=== PATIENT | male | born 1975 | race African-American/Black ===

== ENCOUNTER 2019-04-14 12:50 | Emergency (ER) | payer OTHER ==
[2019-04-14 12:55] VITALS: BP 130/75; PULSE 77; TEMP 98.2; BMI 28.8
--- NOTE | 2019-04-14 14:51 | PDOC ---
History of Present Illness - General Chief Complaint: Pain, Acute Stated Complaint: LEFT ANKLE PAIN Time Seen by Provider: 04/14/19 12:56 History Source: Patient (Patient walked in after injuring left ankle 3 weeks ago , on top of a similar previous injury) Past History - Past Medical History Allergies/Adverse Reactions: Allergies Allergy/AdvReac Type Severity Reaction Status Date / Time No Known Allergies Allergy Verified 04/14/19 12:51 Home Medications: Ambulatory Orders NK [No Known Home Medication] 04/14/19 CVA: No COPD: No Thyroid Disease: No Other medical history: DENIES - Psycho Social/Smoking Cessation Hx Smoking History: Current some day smoker Number of Cigarettes Smoked Daily: 1 Information on smoking cessation initiated: Yes Hx Alcohol Use: Yes (OCASIONAL) Drug/Substance Use Hx: No *Physical Exam - Vital Signs Last Vital Signs Temp Pulse Resp BP Pulse Ox 98.2 F 77 17 130/75 100 04/14/19 12:51 04/14/19 12:51 04/14/19 12:51 04/14/19 12:51 04/14/19 12:51 ED Treatment Course - RADIOLOGY Radiology Studies Ordered: Category Date Time Status ANKLE-LEFT [RAD] Stat Radiology 04/14/19 13:28 Completed Discharge - Discharge Information Problems reviewed: Yes Clinical Impression/Diagnosis: Achilles rupture, left Qualifiers: Encounter type: initial encounter Qualified Code(s): S86.012A - Strain of left Achilles tendon, initial encounter Condition: Stable Disposition: HOME - Admission No - Additional Discharge Information Health Concerns: Achile's tendon injury Prescription Drug Monitoring Program (I-STOP) results: I-STOP reviewed and no issues identified - Follow up/Referral Referrals: Willie Jacobs MD [Staff Physician] - - Patient Discharge Instructions Patient Printed Discharge Instructions: Achilles Tendon Rupture Additional Instructions: [facility], request [facility]opedic Evaluation for potential surgical repair - Post Discharge Activity
== END 2019-04-14 15:07 | disposition home or self-care (01) ==
LOC: FER 12:50
DX: S86.012A Strain of left Achilles tendon, initial encounter (principal); X58.XXXA Exposure to other specified factors, initial encounter; Y93.89 Activity, other specified; Y92.89 Other specified places as the place of occurrence of the external cause; F17.210 Nicotine dependence, cigarettes, uncomplicated
CPT/HCPCS: 73610-TC-LT-FY; 99282-25

== ENCOUNTER 2020-08-31 16:35 | Emergency (ER) | payer OTHER ==
[2020-08-31 16:46] VITALS: BP 140/95; PULSE 80; TEMP 98; BMI 28.6
[2020-08-31 17:48] LABS: BASO % 0.8 % (0-2.0); EOS % 0.8 % (0-4.5); HEMATOCRIT 43.7 % (35.4-49); HEMOGLOBIN 14.2 GM/dl (11.7-16.9); LYMPH % 19.1 % (8-40); MCH 27.5 pg (25.7-33.7); MCHC 32.5 g/dl (32.0-35.9); MEAN CELL VOLUME 84.6 fl (80-96); MEAN PLT VOLUME 8.4 fl (7.5-11.1); NEUT % 69.3 % (42.8-82.8); PLATELET COUNT 174 K/MM3 (134-434); RBC 5.17 M/mm3 (4.00-5.60); RDW 12.9 % (11.9-15.9); WHITE BLOOD COUNT 4.9 K/mm3 (4.0-10.8)
[2020-08-31 17:57] LABS: ALBUMIN 4.5 g/dl (3.4-5.0); BILIRUBIN,TOTAL 0.8 mg/dl (0.2-1); CALCIUM 9.2 mg/dl (8.5-10); POTASSIUM 3.8 mmol/L (3.5-5.1); TOT PROT 7.6 g/dl (6.4-8.2)
== END 2020-08-31 18:35 | disposition home or self-care (01) ==
LOC: FER 16:35
DX: R07.9 Chest pain, unspecified (principal)
CPT/HCPCS: 36415; 71046-TC-FY; 80053; 82550; 82553; 84484; 85025; 93005; 99285-25

== ENCOUNTER 2021-09-22 12:09 | Emergency (ER) | payer OTHER ==
[2021-09-22 12:20] VITALS: BP 109/74; PULSE 60; TEMP 98.7; BMI 29.2
[2021-09-22] MEDS ORDERED: IBUPROFEN 600 MG TABLET (FP) PO ONE ×2 (12:23→12:27)
[2021-09-22] MEDS ORDERED: LIDOCAINE 5% TOPICAL PATCH TP ONE (12:30)
[2021-09-22] MEDS ORDERED: LIDOCAINE 5% TOPICAL PATCH ONE (12:31)
[2021-09-22] MEDS ORDERED: LIDOCAINE PATCH REMOVAL MC SCH (22:00)
== END 2021-09-22 12:41 | disposition home or self-care (01) ==
LOC: FER 12:09
DX: M54.2 Cervicalgia (principal); M54.50 Low back pain, unspecified; V49.40XA Driver injured in collision with unspecified motor vehicles in traffic accident, initial encounter
CPT/HCPCS: 99283-25